=== PATIENT | male | born 1995 | race Two or more races ===

== ENCOUNTER 2016-10-24 09:00 | Day surgery (SDC) | payer BC ==
[~2016-10-24] VITALS: Ht 188 cm; Wt 97.9 kg
[2016-10-24 09:35] VITALS: Ht 188 cm; Wt 97.9 kg
[2016-10-24] MEDS ORDERED: SUCRALFATE PO (09:43)
[2016-10-24] MEDS ORDERED: NEXIUM PO (09:43)
[2016-10-24 10:40] VITALS: BP 116/72; PULSE 60; RESP 24
[2016-10-24] MEDS ORDERED: LIDOCAINE 2% (SDV) 5 ML INJ ONE (10:42)
[2016-10-24] MEDS ORDERED: PROPOFOL 20 ML ONE (10:42)
[2016-10-24 11:39] VITALS: BP 110/68; PULSE 63; RESP 16
--- NOTE | 2016-10-24 15:09 | GILP ---
DATE OF PROCEDURE: 10/24/2016 PROCEDURE PERFORMED: Esophagogastroduodenoscopy with biopsies. INDICATION: A 20-year-old male undergoing this procedure for weight loss of 35 to 40 pounds and yasemin enic stool. INFORMED CONSENT: The risk of the procedure, related and unrelated complications, anesthetic risks and alternatives discussed, informed consent was obtained. DESCRIPTION OF PROCEDURE: The patient was brought to the GI lab, sedated by Dr. Encinas. After optima l sedation, scope was passed with much ease into esophagus which showed 2 gastric inlets size up at 3 cm in diameter in the cervical esophagus. The rest of the esophagus was normal. Z line was at 40 cm while coming out and almost 44 cm while going in. The Z line was regular. Stomach mucosa revea led chronic gastritis. Duodenum, first and second part was within normal limits except for a nonspe cific whitish coating. Two biopsies taken from the second part, 1 from the bulb to rule out celiac sprue. Three to 4 biopsies taken from the stomach to rule out H. pylori infection. Retroversion wa s grossly within normal limits. Scope was straightened out and removed with good patient tolerance. IMPRESSION 1. 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 Two such inlets identified. 2. Normal esophagus. 3. Z line at 40 cm and regular. 4. Chronic gastritis. 5. Normal duodenum. PLAN: Review histopathology. Reassure the patient and monitor his weight. Dictated By: REECE LONDON MD PJ/NTS Conf#: [id number] DID#: [id number] CC: GORAN CASTRO MD;*EndCC*
== END 2016-10-24 13:16 | disposition home or self-care (01) ==
LOC: GIL 09:00
PROVIDERS: ATTEND Internal Medicine Gastroenterology
DX: K29.50 Unspecified chronic gastritis without bleeding (principal)
CPT/HCPCS: 43239; 88305; 88312; Z7610